=== PATIENT | male | born 1980 | race Asian ===

== ENCOUNTER 2021-01-16 06:12 | Day surgery (SDC) | payer OTHER ==
[2021-01-16] MEDS ORDERED: cefTRIAXone 2 GM VIAL ONE (06:24)
[2021-01-16] MEDS ORDERED: LACTATED RINGERS 1,000 ML IV ONE ×2 (06:49→09:38)
[2021-01-16] MEDS ORDERED: PROPOFOL 200 MG/20 ML VIAL IVP ONE (07:08)
[2021-01-16] MEDS ORDERED: ROPIVACAINE 0.5% PF 20 ML AMPULE ONE (07:08)
[2021-01-16] MEDS ORDERED: KETOROLAC 30 MG/ML VIAL ONE (07:08)
[2021-01-16] MEDS ORDERED: LIDOCAINE-PF 2% 10 ML AMP SUBQ ONE (07:08)
[2021-01-16] MEDS ORDERED: ONDANSETRON 4 MG/2 ML VIAL ONE (07:08)
[2021-01-16] MEDS ORDERED: DEXAMETHASONE 4 MG/ML VIAL ONE (07:08)
[2021-01-16] MEDS ORDERED: SUGAMMADEX 200 MG/2 ML VIAL IVP ONE (07:08)
[2021-01-16] MEDS ORDERED: ROCURONIUM 50 MG/5 ML VIAL ONE (07:08)
[2021-01-16] MEDS ORDERED: DEXMEDETOMIDINE 200 MCG/2 ML VIAL ONE (07:08)
[2021-01-16] MEDS ORDERED: EPINEPHrine 1 MG/ML AMP ONE (07:10)
[2021-01-16] MEDS ORDERED: MIDAZOLAM 2 MG/2 ML VIAL ONE (07:18)
[2021-01-16] MEDS ORDERED: fentaNYL 100 MCG/2 ML VIAL ONE (07:18)
--- NOTE | 2021-01-16 08:10 | ANESTHESIA ---
Pre-Anesthesia VS, & Labs - Diagnosis Left Shoulder Pain - Procedure Left Shoulder Repair/SLAP Vital Signs: Temp Pulse Resp BP Pulse Ox 36.3 C L 62 16 143/89 H 99 01/16/21 06:30 01/16/21 06:30 01/16/21 06:30 01/16/21 06:30 01/16/21 06:30 Height: 5 ft 6 in Weight (kg): 70.31 kg Body Mass Index: 25.0 BMI Classification: Overweight Home Medications and Allergies Home Medications: Ambulatory Orders No Known Home Medications 11/28/20 No Known Home Medications 11/28/20 Allergies/Adverse Reactions: Allergies Allergy/AdvReac Type Severity Reaction Status Date / Time No Known Drug Allergies Allergy Verified 11/28/20 10:19 Anes History & Medical History - Anesthetic History Anesthesia Complications: reports: No previous complications Family history of Malignant Hyperthermia: Denies - Medical History Cardiovascular: reports: None Pulmonary: reports: None Gastrointestinal: reports: None Urinary: reports: None Neuro: reports: None Musculoskeletal: reports: Other Endocrine/Autoimmune: reports: None Skin: reports: None - Surgical History General: reports: Other Exam General: Alert Dental: WNL Mouth Openin Fingerbreadth Neck Mobility: Normal Mallampati classification: II Thyromental Distance: 4-6 cm Respiratory: Lungs clear Cardiovascular: Regular rate Plan Anesthesia Type: General, Interscalene Block Regional Block: Per Surgeon's request for Post Op pain control Consent for Procedure(s) Verified and Reviewed: Yes Code Status: Attempt Resuscitation ASA classification: 1-Healthy patient Is this case an emergency?: No
[2021-01-16] MEDS ORDERED: ONDANSETRON 4 MG/2 ML VIAL IVP PRN ×2 (08:11→09:32)
[2021-01-16] MEDS ORDERED: MORPHINE 2 MG/ML CARPUJECT IVP PRN (08:11)
[2021-01-16] MEDS ORDERED: fentaNYL 100 MCG/2 ML VIAL IVP PRN (08:11)
[2021-01-16] MEDS ORDERED: NALOXONE 0.4 MG/ML VIAL IVP PRN (08:11)
[2021-01-16] MEDS ORDERED: ePHEDrine 50 MG/ML VIAL IVP PRN (08:11)
[2021-01-16] MEDS ORDERED: METOCLOPRAMIDE 10 MG/2 ML VIAL IVP PRN (08:11)
[2021-01-16] MEDS ORDERED: ATROPINE ABBOJECT 1 MG/10 ML SYRINGE IVP PRN (08:11)
[2021-01-16] MEDS ORDERED: HYDROmorphone 0.5 MG/0.5 ML SYRINGE IVP PRN (08:11)
[2021-01-16] MEDS ORDERED: LACTATED RINGERS 1,000 ML IV SCH (09:00)
[2021-01-16] MEDS ORDERED: BUPIVACAINE 0.25% PF 30 ML VIAL SUBQ ONE ×2 (09:13)
[2021-01-16] MEDS ORDERED: BUPIVACAINE 0.25% PF 30 ML VIAL ONE (09:25)
[2021-01-16] MEDS ORDERED: oxyCODONE 5 MG TABLET PO PRN (09:32)
--- NOTE | 2021-01-16 09:44 | OPERATIVE REPORT ---
Operative Report - Other Other Information/Narrative: Date of Surgery: 16 January 2021 Pre-Op Diagnosis: Left shoulder burisitis, SLAP tear, biceps tendinitis Procedure: Left shoulder arthroscopic SLAP debridement, Subacromial decompression. Mini-open biceps tenodesis Postop Diagnosis: Same Primary Surgeon: Maurisio Grimes Secondary Surgeon: Jorge Brody Complications: None EBL: 25 IMPLANTS: Arthrex fibertak x1 POSTOPERATIVE PLAN: 0-2 weeks-Sling at all times. Pendulum exercises 5 times per day. 2-6 weeks-Passive and active range of motion without limitations. No active flexion of the elbow 6-12 weeks-Gradually increase strengthening focusing on rotator cuff and scapular stabilizers per protocol. 16 weeks and beyond-Introduce dynamic activities. EXAMINATION UNDER ANESTHESIA: ROM: Full Anterior load and shift: Grade 2 laxity, slightly more than the contralateral side Posterior load and shift: Grade 2 laxity, slightly more than the contralateral side Inferior sulcus: Normal ARTHROSCOPIC FINDINGS: Rotator interval: Normal Biceps tendon & SLAP: Unstable SLAP tear. No posterior extension Subscapularis: Normal Rotator Cuff: Normal HAGL: None Labrum: Camron complex. Labrum was stable from 4:00 to 10:00 posteriorly Glenoid Cartilage: Normal Humeral Head Cartilage: Normal INDICATION FOR SURGERY: 40M with clinical symptoms consistent with biceps pathology and subacromial bursitis. Symptoms resolved with a biceps injection, but returned. Nonoperative managment failed to resolve symptoms. The risks, benefits, and alternatives were discussed. Risks included pain, bleeding, infection, damage to nearby structures, lack of symptom relief, implant complications, stiffness, need for further surgeries, DVT, PE, stroke, and even . He signed a written consent form. PROCEDURE IN DETAIL: The patient was met in the preoperative holding on the day of the procedure. Operative extremity was signed. Consent was verified. They desired to proceed. Regional anesthesia was obtained in the preoperative area. They were brought to the operating room and surrendered to anesthesia. Once general anesthesia was obtained they were placed in the lateral decubitus position with the operative side up. An axillary roll was placed and all bony prominences were well-padded. A surgical timeout was held to confirm the patient procedure, identity, procedure, laterality, allergies, images, and antibiotics. All were in agreement we proceeded. A standard diagnostic arthroscopy was performed utilizing posterior and anterosuperior portals. The anterosuperior portal was created under direct visualization and localized with a spinal needle. The 7 mm cannula was placed anteriorly. The findings of the diagnostic arthroscopy can be found above. I then proceeded to take the biceps at it's insertion onto the superior labrum. The stump was debrided. The Superior labrum was debrided back to a stable base. Final images were taken and the instruments were removed from the intra- articular space. SUBACROMIAL DECOMPRESSION: The instruments and cannula were then removed from the glenohumeral joint. The scope trocar was placed in the posterior portal and the acromion was felt. It was then inserted just under the acromion scraping along the bone until the CA ligament was felt. The scope trocar was then brought just lateral to the CA ligament and out the anterior incision. The cannula was then brought over the scope trocar arthroscope were inserted. The arthroscope was backed up until the shaver and arthroscope were in the subacromial space. I then systemically debrided the bursa using a sucker shaver and radiofrequency ablation wand. A direct lateral incision was made and the bursectomy and decompression was completed through the lateral incision. All soft tissue was debrided from the underside of the acromion and the posterior edge of the CA ligament was lifted. Care was taken to keep the deltoid fascia intact. The rotator cuff was then evaluated and there was no full-thickness tear. Final images were taken MINI OPEN BICEPS TENODESIS: A 5 cm incision was made near the axillary fold centered over the pectoralis major tendon. Electrocautery was used to obtain hemostasis. The fascia was opened with dissection scissors. Blunt digital dissection was used to identify the intertubercular groove just under the pectoralis major tendon. The long head of the biceps tendon was visualized within this interval. The short head of the biceps was retracted with my finger and the right angle was used to deliver the tendon of the long head of the biceps out of the wound. A lantigua elevator was then used to debride all synovial tissue from the intertubercular groove. A fibertack was placed high within the groove. Both limbs of the fibertack were pulled on and it was well fixed. I then whipstitched the biceps tendon starting 2 cm proximal to the muscul otendinous junction down to the musculotendinous junction and back up to the same 2 cm location with a single limb of the suture tack. The other suture was placed once through the tendon at the 2 cm location. I then cut all excess tendon off. The suture limb that was passed the single time was then pulled on and this reduced the tendon nicely into the groove. The elbow was fully straightened and there was no excess tension on the repair site. I then tied 7 reverse half hitches alternating to secure the tendon in its place. The wound was then irrigated copiously. The portal sites were then closed with 3-0 Monocryl buried. Any open incisions were closed with 2-0 Vicryl in the dermis and a running 3-0 Monocryl in the skin. Mastisol and Steri-Strips were applied. A sterile dressing and a sling was applied. A sling was placed. The patient was awakened and transferred to the recovery room.
[2021-01-16 10:29] VITALS: BP 127/80
--- NOTE | 2021-01-16 10:59 | ANESTHESIA POST OP EVALUATION ---
Anesthesia Post Eval - Post Anesthesia Eval Vitals: Last Vital Signs Temp 36.0 C L 01/16/21 10:27 Pulse 60 01/16/21 10:27 Resp 16 01/16/21 10:27 BP 127/80 01/16/21 10:27 Pulse Ox 100 01/16/21 10:27 CV Function Including HR & BP: positive: Stable Pain Control: positive: Satisfactory Nausea & Vomiting: positive: Negative Mental Status: positive: Baseline Respiratory Status: Airway Patent Hydration Status: Satisfactory Anesthesia Complications: positive: None
== END 2021-01-16 06:13 | disposition home or self-care (01) ==
LOC: SDS 06:12
PROVIDERS: ATTEND Orthopaedic Surgery
DX: M75.22 Bicipital tendinitis, left shoulder (principal); S43.432A Superior glenoid labrum lesion of left shoulder, initial encounter; M75.52 Bursitis of left shoulder; X58.XXXA Exposure to other specified factors, initial encounter; E66.3 Overweight; Z68.25 Body mass index [BMI] 25.0-25.9, adult; Z79.82 Long term (current) use of aspirin; Z79.899 Other long term (current) drug therapy
CPT/HCPCS: 23430; 29822; C1713; J7120